=== PATIENT | female | born 1985 | race African-American/Black ===

== ENCOUNTER 2021-03-08 06:08 | Emergency (ER) | payer OTHER ==
[~2021-03-08] VITALS: Ht 180.3 cm; Wt 63.6 kg
[2021-03-08 06:29] VITALS: BP 158/100
[2021-03-08] MEDS ORDERED: acetaminophen 325mg tablet PO ONE (06:40)
--- NOTE | 2021-03-08 07:15 | NUR ---
while RN another room patient left the hospital without speaking to any ER staff.
== END 2021-03-08 07:16 | disposition left against medical advice (07) ==
LOC: ER 06:08
DX: S16.1XXA Strain of muscle, fascia and tendon at neck level, initial encounter (principal); M54.9 Dorsalgia, unspecified; V87.7XXA Person injured in collision between other specified motor vehicles (traffic), initial encounter; Y93.89 Activity, other specified; Y92.89 Other specified places as the place of occurrence of the external cause; Y99.8 Other external cause status
CPT/HCPCS: 93005; 99283

== ENCOUNTER 2021-03-10 17:18 | Emergency (ER) | payer OTHER ==
[~2021-03-10] VITALS: Ht 180.3 cm; Wt 68.9 kg
[2021-03-10 17:43] VITALS: BP 120/83
== END 2021-03-10 20:32 | disposition left against medical advice (07) ==
LOC: ER 17:18
DX: R19.7 Diarrhea, unspecified (principal); R11.0 Nausea; M79.606 Pain in leg, unspecified; M25.559 Pain in unspecified hip; Z00.00 Encounter for general adult medical examination without abnormal findings; Z72.89 Other problems related to lifestyle
CPT/HCPCS: 99281